=== PATIENT | male | born 1940 | race Caucasian/White ===

== ENCOUNTER 2020-12-19 18:55 | Emergency (ER) | payer MEDICARE, BC ==
--- NOTE | 2020-12-19 19:30 | EDM.PDOC ---
ED HPI GENERAL MEDICAL PROBLEM - General Stated Complaint: WEAKNESS Time Seen by Provider: 12/19/20 19:05 Source of Information: Reports: Patient, EMS History Limitations: Reports: Intoxication - History of Present Illness INITIAL COMMENTS - FREE TEXT/NARRATIVE: Patient comes emergency department today by ambulance from the local [employer] [facility] with complaints of weakness. According to EMS the patient has been sitting at the bar drinking most of the afternoon. He went to leave and he was complaining of weakness and had to be held up by 3 people. He did not fall. He did not strike his head. He had no complaints. They were concerned about his weakness as this is not typical for him as he is a regular at the bar there. Upon arrival the patient does not want to be here. He denies drinking any alcohol today. He denies any complaints. He denies any headache neck or back pain. No recent falls trauma or injury. No visual acuity changes. No chest pain no shortness of breath or difficulty breathing. No cough or congestion. He denies any weakness dizziness lightheadedness. He relates that he just needed a little help getting out to his car so that he could drive himself home. He denies any abdominal pain nausea or vomiting. No paresthesias of his upper or lower extremities. No change in the functionality of his upper or lower extremities. NO COVID symptoms no COVID exposure. - Related Data Allergies Allergy/AdvReac Type Severity Reaction Status Date / Time No Known Allergies Allergy Verified 12/19/20 20:14 Home Meds: Home Meds Enalapril Maleate 20 mg PO DAILY 12/19/20 [History] Metoprolol Succinate [Toprol Xl] 100 mg PO DAILY 12/19/20 [History] amLODIPine [Norvasc] 5 mg PO DAILY 12/19/20 [History] ED ROS GENERAL - Review of Systems Review Of Systems: Comprehensive ROS is negative, except as noted in HPI. ED EXAM, NEURO - Physical Exam Exam: See Below Text/Narrative:: Smells highly of alcoholic beverages and slurring his words. Sclera is mildly injected without exudate. Exam Limited By: Intoxication General Appearance: Alert, WD/WN, Obese Eye Exam: Bilateral Eye: EOMI, Proptosis Ears: Normal External Exam, Hearing Grossly Normal, Normal TMs. No: Normal Canal (Left canal unremarkable. RIght impacted with large amount of wax that was removed with a curette a large amount of thick hard wax. ) Nose: Normal Inspection, Normal Mucosa, No Blood Throat/Mouth: Normal Inspection, Normal Lips, Normal Teeth, Normal Gums, Normal Oropharynx, Normal Voice, No Airway Compromise Head Exam: Atraumatic, Normocephalic Neck: Normal Inspection, Supple, Non-Tender, Full Range of Motion Respiratory/Chest: No Respiratory Distress, Lungs Clear, Normal Breath Sounds, No Accessory Muscle Use, Chest Non-Tender Cardiovascular: Normal Peripheral Pulses, Regular Rate, Rhythm GI/Abdominal: Normal Bowel Sounds, Soft, Non-Tender (Male) Exam: Deferred Rectal (Males) Exam: Deferred Neurological: Alert, Normal Mood/Affect, CN II-XII Intact, Normal Reflexes, No Motor/Sensory Deficits (other than obvious intoxication. ) Back Exam: Normal Inspection, Full Range of Motion Extremities: Normal Inspection, Normal Range of Motion, Normal Capillary Refill Psychiatric: Anxious Skin Exam: Warm, Dry, Intact, Normal Color, No Rash #1 Interpretation EKG Date: 12/19/20 Time: 19:34 Rate (Beats/Min): 76 Mora: Normal P-Wave: Present QRS: LBBB ST-T: Normal QT: Normal Comparison: NA - No Prior EKG Course - Vital Signs Last Recorded V/S: Last Vital Signs Temp 97.8 F 12/19/20 18:55 Pulse 74 12/19/20 20:31 Resp 16 12/19/20 20:31 BP 178/93 H 12/19/20 20:31 Pulse Ox 91 L 12/19/20 20:31 - Orders/Labs/Meds Orders: Active Orders 24 hr Category Date Time Status EKG Documentation Completion [RC] STAT Care 12/19/20 19:04 Active CULTURE URINE [RM] Stat Lab 12/19/20 20:00 Received Labs: Laboratory Tests 12/19/20 12/19/20 12/19/20 Range/Units 19:22 19:22 19:22 WBC 9.5 (4.0-10.0) x10^3/uL RBC 4.74 (4.5-6.0) x10^6/uL Hgb 15.2 (14.0-18.0) g/dL Hct 45.3 (40.0-52.0) % MCV 95.6 H (78.0-93.0) fL MCH 32.1 H (26.0-32.0) pg MCHC 33.6 (32.0-36.0) g/dL RDW Coeff of Rand 12.8 (10.0-15.0) % Plt Count 231 (130-400) x10^3/uL Neut % (Auto) 56.4 (50.0-80.0) % Lymph % (Auto) 25.4 (25.0-50.0) % [place] % (Auto) 12.4 H (2.0-11.0) % Eos % (Auto) 5.3 H (0.0-4.0) % Baso % (Auto) 0.5 (0.2-1.2) % Sodium 134 L (136-145) mmol/L Potassium 4.0 (3.5-5.1) mmol/L Chloride 98 (98-107) mmol/L Carbon Dioxide 26 (21-32) mmol/L Anion Gap 14.0 (5-15) mmol/L BUN 12 (7-18) mg/dL Creatinine 1.3 (0.70-1.30) mg/dL Est Cr Clr Drug Dosing 45.32 mL/min Estimated GFR (MDRD) 53 Glucose 127 H (74-106) mg/dL Lactic Acid 3.7 H* (0.4-2.0) mmol/L Calcium 8.7 (8.5-10.1) mg/dL Corrected Calcium 9.18 (8.5-10.1) mg/dL Magnesium (1.8-2.4) mg/dL Total Bilirubin 0.3 (0.2-1.0) mg/dL AST 38 H (15-37) U/L ALT 44 (16-63) U/L Alkaline Phosphatase 66 (46-116) U/L Troponin I High Sens 8 (<=76) ng/L Total Protein 7.3 (6.4-8.2) g/dL Albumin 3.4 (3.4-5.0) g/dL Globulin 3.9 Albumin/Globulin Ratio 0.87 Lipase 263 (73-393) U/L Urine Color (YELLOW) Urine Appearance (CLEAR) Urine pH (5.0-8.0) Ur Specific Paxton Urine Protein (NEGATIVE) mg/dL Urine Glucose (UA) (NEGATIVE) mg/dL Urine Ketones (NEGATIVE) mg/dL Urine Occult Blood (NEGATIVE) Urine Nitrite (NEGATIVE) Urine Bilirubin (NEGATIVE) Urine Urobilinogen (0.2) EU/dL Ur Leukocyte Esterase (NEGATIVE) U Hyaline Cast (Auto) Urine RBC (NOT SEEN) /HPF Urine WBC (NOT SEEN) /HPF Ur Squamous Epith Cells (NOT SEEN) /HPF Amorphous Sediment Urine Bacteria (NOT SEEN) /HPF Urine Mucus (NOT SEEN) /LPF Urine Opiates Screen (NEAGTIVE) Ur Buprenorphine Scrn (NEGATIVE) Ur Oxycodone Screen (NEGATIVE) Ur EDDP (Meth Metab) (NEGATIVE) Urine Methadone Screen (NEGATIVE) Ur Barbiturates Screen (NEGATIVE) Ur Tricyclics Screen (NEGATIVE) Ur Phencyclidine Scrn (NEGATIVE) Ur Amphetamine Screen (NEGATIVE) U Methamphetamines Scrn (NEGATIVE) Urine MDMA Screen (NEGATIVE) U Benzodiazepines Scrn (NEGATIVE) U Cocaine Metab Screen (NEGATIVE) U Marijuana (THC) Screen (NEGATIVE) Ethyl Alcohol 252 H (0-3) mg/dL 12/19/20 12/19/20 12/19/20 Range/Units 19:22 19:55 20:00 WBC (4.0-10.0) x10^3/uL RBC (4.5-6.0) x10^6/uL Hgb (14.0-18.0) g/dL Hct (40.0-52.0) % MCV (78.0-93.0) fL MCH (26.0-32.0) pg MCHC (32.0-36.0) g/dL RDW Coeff of Rand (10.0-15.0) % Plt Count (130-400) x10^3/uL Neut % (Auto) (50.0-80.0) % Lymph % (Auto) (25.0-50.0) % [place] % (Auto) (2.0-11.0) % Eos % (Auto) (0.0-4.0) % Baso % (Auto) (0.2-1.2) % Sodium (136-145) mmol/L Potassium (3.5-5.1) mmol/L Chloride (98-107) mmol/L Carbon Dioxide (21-32) mmol/L Anion Gap (5-15) mmol/L BUN (7-18) mg/dL Creatinine (0.70-1.30) mg/dL Est Cr Clr Drug Dosing mL/min Estimated GFR (MDRD) Glucose (74-106) mg/dL Lactic Acid (0.4-2.0) mmol/L Calcium (8.5-10.1) mg/dL Corrected Calcium (8.5-10.1) mg/dL Magnesium 2.0 (1.8-2.4) mg/dL Total Bilirubin (0.2-1.0) mg/dL AST (15-37) U/L ALT (16-63) U/L Alkaline Phosphatase (46-116) U/L Troponin I High Sens (<=76) ng/L Total Protein (6.4-8.2) g/dL Albumin (3.4-5.0) g/dL Globulin Albumin/Globulin Ratio Lipase (73-393) U/L Urine Color Yellow (YELLOW) Urine Appearance Slightly cloudy H (CLEAR) Urine pH 5.5 (5.0-8.0) Ur Specific Paxton 1.015 Urine Protein 30 H (NEGATIVE) mg/dL Urine Glucose (UA) Negative (NEGATIVE) mg/dL Urine Ketones Negative (NEGATIVE) mg/dL Urine Occult Blood Trace-intact H (NEGATIVE) Urine Nitrite Negative (NEGATIVE) Urine Bilirubin Negative (NEGATIVE) Urine Urobilinogen 0.2 (0.2) EU/dL Ur Leukocyte Esterase Trace H (NEGATIVE) U Hyaline Cast (Auto) Few Urine RBC 0-5 (NOT SEEN) /HPF Urine WBC 5-10 H (NOT SEEN) /HPF Ur Squamous Epith Cells Occasional H (NOT SEEN) /HPF Amorphous Sediment Few Urine Bacteria Few H (NOT SEEN) /HPF Urine Mucus Few H (NOT SEEN) /LPF Urine Opiates Screen Negative (NEAGTIVE) Ur Buprenorphine Scrn Negative (NEGATIVE) Ur Oxycodone Screen Negative (NEGATIVE) Ur EDDP (Meth Metab) Negative (NEGATIVE) Urine Methadone Screen Negative (NEGATIVE) Ur Barbiturates Screen Negative (NEGATIVE) Ur Tricyclics Screen Negative (NEGATIVE) Ur Phencyclidine Scrn Negative (NEGATIVE) Ur Amphetamine Screen Negative (NEGATIVE) U Methamphetamines Scrn Negative (NEGATIVE) Urine MDMA Screen Negative (NEGATIVE) U Benzodiazepines Scrn Negative (NEGATIVE) U Cocaine Metab Screen Negative (NEGATIVE) U Marijuana (THC) Screen Negative (NEGATIVE) Ethyl Alcohol (0-3) mg/dL 12/19/20 12/19/20 Range/Units 21:46 21:46 WBC (4.0-10.0) x10^3/uL RBC (4.5-6.0) x10^6/uL Hgb (14.0-18.0) g/dL Hct (40.0-52.0) % MCV (78.0-93.0) fL MCH (26.0-32.0) pg MCHC (32.0-36.0) g/dL RDW Coeff of Rand (10.0-15.0) % Plt Count (130-400) x10^3/uL Neut % (Auto) (50.0-80.0) % Lymph % (Auto) (25.0-50.0) % [place] % (Auto) (2.0-11.0) % Eos % (Auto) (0.0-4.0) % Baso % (Auto) (0.2-1.2) % Sodium (136-145) mmol/L Potassium (3.5-5.1) mmol/L Chloride (98-107) mmol/L Carbon Dioxide (21-32) mmol/L Anion Gap (5-15) mmol/L BUN (7-18) mg/dL Creatinine (0.70-1.30) mg/dL Est Cr Clr Drug Dosing mL/min Estimated GFR (MDRD) Glucose (74-106) mg/dL Lactic Acid 2.7 H* (0.4-2.0) mmol/L Calcium (8.5-10.1) mg/dL Corrected Calcium (8.5-10.1) mg/dL Magnesium (1.8-2.4) mg/dL Total Bilirubin (0.2-1.0) mg/dL AST (15-37) U/L ALT (16-63) U/L Alkaline Phosphatase (46-116) U/L Troponin I High Sens (<=76) ng/L Total Protein (6.4-8.2) g/dL Albumin (3.4-5.0) g/dL Globulin Albumin/Globulin Ratio Lipase (73-393) U/L Urine Color (YELLOW) Urine Appearance (CLEAR) Urine pH (5.0-8.0) Ur Specific Paxton Urine Protein (NEGATIVE) mg/dL Urine Glucose (UA) (NEGATIVE) mg/dL Urine Ketones (NEGATIVE) mg/dL Urine Occult Blood (NEGATIVE) Urine Nitrite (NEGATIVE) Urine Bilirubin (NEGATIVE) Urine Urobilinogen (0.2) EU/dL Ur Leukocyte Esterase (NEGATIVE) U Hyaline Cast (Auto) Urine RBC (NOT SEEN) /HPF Urine WBC (NOT SEEN) /HPF Ur Squamous Epith Cells (NOT SEEN) /HPF Amorphous Sediment Urine Bacteria (NOT SEEN) /HPF Urine Mucus (NOT SEEN) /LPF Urine Opiates Screen (NEAGTIVE) Ur Buprenorphine Scrn (NEGATIVE) Ur Oxycodone Screen (NEGATIVE) Ur EDDP (Meth Metab) (NEGATIVE) Urine Methadone Screen (NEGATIVE) Ur Barbiturates Screen (NEGATIVE) Ur Tricyclics Screen (NEGATIVE) Ur Phencyclidine Scrn (NEGATIVE) Ur Amphetamine Screen (NEGATIVE) U Methamphetamines Scrn (NEGATIVE) Urine MDMA Screen (NEGATIVE) U Benzodiazepines Scrn (NEGATIVE) U Cocaine Metab Screen (NEGATIVE) U Marijuana (THC) Screen (NEGATIVE) Ethyl Alcohol 188 H (0-3) mg/dL Meds: Medications Discontinued Medications Generic Name Dose Route Start Last Admin Trade Name Freq PRN Reason Stop Dose Admin Multivitamins/Minerals 1 tab/ 0 tab 12/19/20 20:13 12/19/20 20:21 Thiamine HCl 100 mg/ Folic PO 12/19/20 20:14 1 each Acid 1 mg/ Magnesium Oxide 400 ONETIME ONE Administration mg - Re-Assessments/Exams Free Text/Narrative Re-Assessment/Exam: 12/19/20 EKG completed without any ST elevation or depression when reviewed extemporaneously by myself. Laboratory evaluation shows a WBC of 9.5 a hemoglobin of 15.5 and a platelet of 231. CMP with a sodium of 134 potassium of 4.0 creatinine 1.3 and BUN of 12. T bili normal AST mildly elevated at 38 and ALT of 44. Troponin high-sensitivity normal at 8. Magnesium 2.0. Glucose 127. Lactic acid elevated at 3.7. I think that this is most likely due to dehydration as he shows no signs of infection or he is not on any medications that would cause lactic acidosis such as Metformin or albuterol. Despite the patient stating that he has not been drinking today his alcohol is 252. This could be because of his lactic acidosis due to dehydration or other physiology. He is rather unsteady on his feet and is needing assistance. His niece and other family members are here with him. He was given something to eat as well as multiple glasses of water. As this gentleman is quite elderly and unstable on his feet and his alcohol is quite high I think it is best that I observe him here in the emergency department repeat his lactic acid as well as his alcohol to see if it is going up or if it is going down. He and his family are agreeable to this and their questions are answered. 12/19/20 23:08 The patient level of intoxication is improved by clinical exam. He is alert appropriate. Without any distress. He has drank multiple glasses of water and he has had some food to eat. He is cooperative. His alcohol is improved down to 188 as well as his lactic acid down to 2.7. I think that his lactic sarmad vation is most likely due to dehydration he shows no signs of infection or other concerns at this time. We will discharge him home with his niece who will stay with him tonight as he is intoxicated and unsteady on his feet and we want to prevent any further injury or harm. The niece takes responsibility of the discharging this elderly intoxicated male. I discussed with him the legal aspect of him attempting to drive home with a blood alcohol of greater than 0.25. Uninterested in assistance with his alcoholism that he has been drinking with for the last 45 years. Shows no signs of withdrawal. We will discharge him home with his family. Discharge directions as below are explained to the patient and his family they are comfortable with this plan and his questions were answered. Departure - Departure Time of Disposition: 20:12 Disposition: Home, Self-Care 01 Clinical Impression: Acute alcoholic intoxication in alcoholism (blood level 0.08-0.29) Qualifiers: Complication of substance-induced condition: uncomplicated Qualified Code(s): F10.220 - Alcohol dependence with intoxication, uncomplicated - Discharge Information Instructions: Alcohol Use Disorder, Alcohol Intoxication, [id number] Referrals: Jb Jay MD [Primary Care Provider] - Additional Instructions: Home tonight with family Rest tonight. Tomorrow. Make sure and drink plenty of fluids including water and electrolyte containing materials such as gatorade and or powerade. Your alcohol level tonight was 0.252 and you were planning on driving home. This is about 3 times the legal limit to operate a vehicle. If you are interested in assistance with your alcohol use disorder, discuss with your PCP or seek assistance at the [facility] [phone]. Return to the ED if new or worsening symptoms. Follow up if any concerns. Sepsis Event Note (ED) - Focused Exam Vital Signs: Vital Signs Temp Pulse Resp BP Pulse Ox 12/19/20 20:31 74 16 178/93 H 91 L 12/19/20 18:55 97.8 F 96 16 138/66 96 - My Orders Last 24 Hours: My Active Orders 12/19/20 19:04 EKG Documentation Completion [RC] STAT 12/19/20 20:00 CULTURE URINE [RM] Stat - Assessment/Plan Last 24 Hours: My Active Orders 12/19/20 19:04 EKG Documentation Completion [RC] STAT 12/19/20 20:00 CULTURE URINE [RM] Stat
[2020-12-19] MEDS ORDERED: Multivitamins w-Iron/Ca/FA/Min 1 TAB, Thiamine 100 MG, Folic Acid 1 MG, Magnesium Oxide... PO ONE ×3 (20:13)
[2020-12-19 20:20] LABS: BARBITURATE SCREEN,URINE NEGATIVE (NEGATIVE); BENZODIAZEPINES SCREEN,URINE NEGATIVE (NEGATIVE); EDDP,URINE SCREEN NEGATIVE (NEGATIVE); METHAMPHETAMINE SCREEN, URINE NEGATIVE (NEGATIVE); TCA SCREEN,URINE NEGATIVE (NEGATIVE); THC SCREEN,URINE 50 NG/ML NEGATIVE (NEGATIVE)
== END 2020-12-19 22:45 | disposition home or self-care (01) ==
LOC: VM.ED 18:55
DX: F10.220 Alcohol dependence with intoxication, uncomplicated (principal); Y90.6 Blood alcohol level of 120-199 mg/100 ml; Z79.899 Other long term (current) drug therapy
CPT/HCPCS: 36415; 80053; 80305-QW; 80307; 81001; 83605; 83690; 83735; 84484; 85025; 87086; 93005; 93010; 99284; 99284-25; A9270-GY

== ENCOUNTER 2023-06-07 14:12 | Emergency (ER) | payer MEDICARE, BC ==
[2023-06-07] MEDS: Acetaminophen/HYDROcodone 325-5 MG Tab PO ONE (14:51)
== END 2023-06-07 16:02 | disposition home or self-care (01) ==
LOC: VM.ED 14:12
DX: S70.01XA Contusion of right hip, initial encounter (principal); I10 Essential (primary) hypertension; Z86.73 Personal history of transient ischemic attack (TIA), and cerebral infarction without residual deficits; Z79.899 Other long term (current) drug therapy; W10.8XXA Fall (on) (from) other stairs and steps, initial encounter
CPT/HCPCS: 73502; 99283; A9270